=== PATIENT | female | born 1985 | race Caucasian/White ===

== ENCOUNTER → 2018-05-06 14:49 | Outpatient (CLI) | payer MEDICAID, SELFPAY ==
[2018-05-06 16:27] LABS: Follicle Stimulating Hormone 5.3 mIU/mL; Glucose 110 mg/dL (74-106); Luteinizing Hormone 12.4 mIU/mL; Pregnancy, Serum, hCG Quali. NEGATIVE Negative (0-9 Nonpreg); Prolactin 7.8 ng/mL; T4 Free Direct 0.79 ng/dL (0.76-1.46); Thyroid Stim Hormone (TSH) 1.48 uIU/mL (0.358-3.74)
[2018-05-06 16:34] LABS: Hemoglobin A1c 5.6 % (4.2-6.3)
--- OUTSIDE RECORDS SUMMARY | 2018-07-11 10:21 | XMS RPT_ITS ---
:1985 Author Organization OHIP Care Team Providers Name Role Phone Nolan Gutierrez Attending Unavailable NO DOCTOR YET Consulting Unavailable VELASQUEZ MATHEWS Attending Unavailable VELASQUEZ MATHEWS Consulting Unavailable DUDLEY SOTO Attending Unavailable DUDLEY SOTO Consulting Unavailable ANTONY AMARO D.O. Consulting Unavailable PROBLEMS PROBLEMS DATE TYPE CONDITION / CODE ATTENDING STATUS SOURCE 05/06/2018 Unknown N92.5 - Other Nolan Gutierrez Active [facility] menstruation / Repository N92.5(ICD-10) 10/18/2017 Admitting Unknown / NA Active [facility] diagnosis UNK(Unknown) Hospital Repository PROCEDURES PROCEDURES No Procedure Records FoundRESULTS RESULTS GLUCOSE Collected: 05/06/2018 Status: F Source: [place] 3:03 PM [facility] REPOSITORY TYPE CODE TESTS RESULT OUT OF RANGE REFERENCE UNITS LAB L501.0100 74-106 mg/dL High GLU 110 Result Comment: Fasting Glucose result from 100 to 125 mg/dL suggests IMPAIRED HOMEOSTASIS per A.D.A. criteria. Please note revised GLUCOSE reference range effective 2017. Performed By: #### L501.0100, L501.25472, L501.9520, L506.0400, L3100.5125, L3100.5170, L3100.5420 #### [facility] [address] [place], [address] FREE T3 Collected: 05/06/2018 Status: F Source: [place] 3:03 PM [facility] REPOSITORY TYPE CODE TESTS RESULT OUT OF RANGE REFERENCE UNITS LAB L501.29404 2.18-3.98 pg/mL Normal FREE T3 3.0 Performed By: #### L501.0100, L501.49898, L501.9520, L506.0400, L3100.5125, L3100.5170, L3100.5420 #### [facility] [address] [place], [address] THYROID STIM HORMONE Collected: 05/06/2018 Status: F Source: [place] C (TSH) 3:03 PM [facility] REPOSITORY TYPE CODE TESTS RESULT OUT OF RANGE REFERENCE UNITS LAB L501.9520 0.358-3.74 uIU/mL Normal TSH 1.48 Performed By: #### L501.0100, L501.68045, L501.9520, L506.0400, L3100.5125, L3100.5170, L3100.5420 #### [facility] [address] [facility] [place], [place], [address] T4 FREE DIRECT Collected: 05/06/2018 Status: F Source: [place] 3:03 PM [facility] REPOSITORY TYPE CODE TESTS RESULT OUT OF RANGE REFERENCE UNITS LAB L506.0400 0.76-1.46 ng/dL Normal T4 FREE 0.79 DIRECT Performed By: #### L501.0100, L501.93748, L501.9520, L506.0400, L3100.5125, L3100.5170, L3100.5420 #### [facility] [address] [facility] [place], [place], [address] FOLLICLE STIMULATING Collected: 05/06/2018 Status: F Source: [place] HORM[place] 3:03 PM [facility] REPOSITORY TYPE CODE TESTS RESULT OUT OF RANGE REFERENCE UNITS LAB L3100.5125 mIU/mL Normal FSH 5.3 Result Comment: NORMAL REFERENCE RANGES FEMALE FOLLICULAR 2.3 - 12.6 mIU/mL MID-CYCLE PEAK 5.2 - 17.5 mIU/mL LUTEAL 1.7 - 12.9 mIU/mL POST-MENOPAUSAL ON MHT 5.9 - 72.8 mIU/mL NOT ON MHT 12.7 - 132.2 mlU/mL MALE 0.7 - 10.8 mIU/mL NEW TEST METHOD AND REFERENCE RANGES SEPTEMBER 08, 2011 Performed By: #### L501.0100, L501.97490, L501.9520, L506.0400, L3100.5125, L3100.5170, L3100.5420 #### [facility] [address] [place], [place], [address] LUTEINIZING HORMONE Collected: 05/06/2018 Status: F Source: [place] 3:03 PM [facility] REPOSITORY TYPE CODE TESTS RESULT OUT OF RANGE REFERENCE UNITS LAB L3100.5170 mIU/mL Normal LH 12.4 Result Comment: NORMAL REFERENCE RANGES FEMALE FOLLICULAR 1.9 - 26.2 mIU/mL MID-CYCLE PEAK 22.8 - 76.1 mIU/mL LUTEAL 0.6 - 16.6 mIU/mL POST-MENOPAUSAL ON MHT 1.1 - 52.4 mIU/mL NOT ON MHT 8.6 - 61.8 mIU/mL MALE 1.2 - 10.6 mIU/mL NEW TEST METHOD AND REFERENCE RANGES SEPTEMBER 08, 2011 Performed By: #### L501.0100, L501.32190, L501.9520, L506.0400, L3100.5125, L3100.5170, L3100.5420 #### [facility] [address] [place], [place], [address] PROLACTIN Collected: 05/06/2018 Status: F Source: [place] 3:03 [facility] REPOSITORY TYPE CODE TESTS RESULT OUT OF RANGE REFERENCE UNITS LAB L3100.5420 ng/mL Normal PROLACTIN 7.8 Result Comment: NORMAL REFERENCE RANGES FEMALE NON- 2.2 - 30.3 ng/mL 8.1 - 347.6 ng/mL POST-MENOPAUSAL 0.7 - 31.5 ng/mL MALE 2.5 - 17.4 ng/mL NEW TEST METHOD AND REFERENCE RANGES SEPTEMBER 08, 2011 Performed By: #### L501.0100, L501.97377, L501.9520, L506.0400, L3100.5125, L3100.5170, L3100.5420 #### [facility] [address] [place], [place], [address] ,SERUM,HCG QUALI. Collected: Status: F Source: [place] 05/06/2018 3:03 PM [facility] REPOSITORY TYPE CODE TESTS RESULT OUT OF REFERENCE UNITS RANGE LAB L700.7000 0-9 Nonpreg Negative Normal HCGSQUAL NEGATIVE LAB L700.6700 =>Qualitative mIU/mL Normal HCG Qual < 1 triggr Performed By: #### L700.6800 #### [facility] [address] [place], [address] HEMOGLOBIN A1C Collected: 05/06/2018 Status: F Source: [place] C 3:03 PM [facility] REPOSITORY TYPE CODE TESTS RESULT OUT OF RANGE REFERENCE UNITS LAB L501.9985 4.2-6.3 % Normal HGB A1C 5.6 Performed By: #### L501.9985 #### [facility] [address] [place], [address] ED PROV NOTE Observed: 01/31/2018 Status: COMPLETED Source: [place] 8:57 PM [facility] [place] REPOSITORY HNO ID: [id number] Author: Antony Iglesias Current Service: (none) Author Type: Physician Type: ED Provider Notes Filed: 02/18/2018 9:44 PM Note Text: [place] [address] HEALTH INFORMATION MANAGEMENT EMERGENCY DEPARTMENT REPORT Patient: CONCHIS BURNHAM CURRENT,ANTONY Michael D.O. [id number] [age] F Status: [facility] ER ED Date of Service: 01/31/18 CHIEF COMPLAINT Low back pain. HISTORY OF PRESENT ILLNESS This is a 32-year-old female. She was moving a refrigerator yesterday and pulled her back, has pain across the low back. No radiation down the legs. No loss of bowel or bladder control. No weakness or numbness in the legs. PAST MEDICAL HISTORY Her past medical history is denied. PAST SURGICAL HISTORY She had a tubal. SOCIAL HISTORY She is a smoker. She denies drugs or alcohol. REVIEW OF SYSTEMS No headaches, blurred vision, sore throat, or neck pain. She denies any radicular pain down the lower extremities. No weakness or numbness in the lower extremities. PHYSICAL EXAMINATION She is awake, alert and oriented x3, in no acute distress, appears to be well hydrated and well nourished. HEENT is benign. Trachea midline. Heart is regular rate and rhythm. Lungs are clear. Abdomen was soft, nontender, normoactive bowel sounds. Extremities are without edema or cyanosis. Skin is without rashes. The patient had good peripheral pulses in the lower extremities. Negative Homans bilaterally. DTRs +2/4 in the patellae and Achilles with good extensor hallucis longus strength. Straight leg raising is negative bilaterally. She is able to stand on her heel and toes. She has some paravertebral tenderness in the lower lumbar region. No step-offs or deformity along the midline. IMPRESSION Lumbosacral strain. PLAN At this time I am going to discharge her home. I gave her a shot of Toradol and Norflex here. I am going to send her home on naproxen and Flexeril. Follow up as an outpatient with Primary Care. No heavy lifting and return to the ED if she has worsening of her symptoms. <Electronically signed by ANTONY AMARO D.O.> 02/02/18 2352 ANTONY AMARO D.O. cc: ANTONY AMARO D.O. << Signature on File>> Reported By: ANTONY AMARO D.O. Signed By: ANTONY AMARO D.O. Tests performed at: [address] [address] EMERGENCY DEPARTMENT Observed: 01/31/2018 Status: F Source: [place] REPORT 8:57 PM [facility] [address] HEALTH INFORMATION MANAGEMENT EMERGENCY DEPARTMENT REPORT Patient: CONCHIS BURNHAM ANTONY AMARO D.O. [id number] [age] F Status: [facility] ER ED Date of Service: 01/31/18 CHIEF COMPLAINT Low back pain. HISTORY OF PRESENT ILLNESS This is a 32-year-old female. She was moving a refrigerator yesterday and pulled her back, has pain across the low back. No radiation down the legs. No loss of bowel or bladder control. No weakness or numbness in the legs. PAST MEDICAL HISTORY Her past medical history is denied. PAST SURGICAL HISTORY She had a tubal. SOCIAL HISTORY She is a smoker. She denies drugs or alcohol. REVIEW OF SYSTEMS No headaches, blurred vision, sore throat, or neck pain. She denies any radicular pain down the lower extremities. No weakness or numbness in the lower extremities. PHYSICAL EXAMINATION She is awake, alert and oriented x3, in no acute distress, appears to be well hydrated and well nourished. HEENT is benign. Trachea midline. Heart is regular rate and rhythm. Lungs are clear. Abdomen was soft, nontender, normoactive bowel sounds. Extremities are without edema or cyanosis. Skin is without rashes. The patient had good peripheral pulses in the lower extremities. Negative Homans bilaterally. DTRs +2/4 in the patellae and Achilles with good extensor hallucis longus strength. Straight leg raising is negative bilaterally. She is able to stand on her heel and toes. She has some paravertebral tenderness in the lower lumbar region. No step-offs or deformity along the midline. IMPRESSION Lumbosacral strain. PLAN At this time I am going to discharge her home. I gave her a shot of Toradol and Norflex here. I am going to send her home on naproxen and Flexeril. Follow up as an outpatient with Primary Care. No heavy lifting and return to the ED if she has worsening of her symptoms. <Electronically signed by ANTONY AMARO D.O.> 02/02/18 2352 ANTONY AMARO D.O. cc: ANTONY AMARO D.O. << Signature on File>> Reported By: ANTONY AMARO D.O. Signed By: ANTONY AMARO D.O. Tests performed at: [address] [address] PROGRESS Observed: 01/11/2018 Status: COMPLETED Source: [place] 10:35 AM [facility] [place] REPOSITORY HNO ID: [id number] Author: Provider [facility] Service: (none) Author Type: Physician Type: Progress Notes Filed: 02/18/2018 9:07 PM Note Text: [facility] [place] [address] FIRST CARE REPORT Patient: FRAME,CONCHIS S CHARLES,-YONAS JohnsonNErma [id number] [age] F Status: REG POV FC Date of Service: 01/11/18 Report Date AND Time: 01/11/18 1035 HPI History Of Present Illness Chief Complaint Cough (FC) CC History Pt presents with dry, semi-productive cough x 3 weeks that is not improving. She is a pack a day smoker. She denies any fevers or sob. Reports mild nasal congestion and post nasal drip. Her cough is worse at night. She is taking tylenol cold and flu without any relief. No ear pain, mild sore throat. Vital Signs Vital Signs First Last Result Date Time Result Date Time Pulse Ox 99 01/11 1000 99 01/11 1000 B/P 108/74 01/11 1000 108/74 01/11 1000 Temp 98.4 01/11 1000 98.4 01/11 1000 Pulse 76 01/11 1000 76 01/11 1000 Resp 16 01/11 1000 16 01/11 1000 Medications Discontinued Scripts Ondansetron* ODT (Zofran* Odt) 4 MG PO Q6HPRN PRN NAUSEA Ondansetron* ODT (Zofran* Odt) 4 MG PO Q6HPRN PRN NAUSEA #10 TAB Prov: 10/19/17 DC: 01/11/18 1004 Not on Medication Reported Medications . (No Home Medications) Allergies Coded Allergies: Penicillins (Mild, RASH (ALLERGY) 01/11/18) Patient Health History Medical Problems Bacterial sinusitis Headache Nausea AND vomiting No pertinent past medical history Varicose vein Viral syndrome Surgical Problems H/O tubal ligation Family History Problems Family history of heart failure No pertinent family history Social History Problems Current non-drinker of alcohol Smoker OARRS Accessed and Reviewed NO LNMP: 12/19/17 Advanced Directives Advanced Directives N/A Adv Dir Info Given No Alcohol Screening Alcohol Use: N/A Review of Systems General Denies: Body Aches, Fever, Chills, Fatigue, Pain, Weakness. Skin No: Rash, Itching, Redness. Head Denies: Headaches, Sinus Headache, Lightheadedness, Dizziness. Eyes Denies: Eye Irritation, Itching, Matted, Redness. Ear Denies: Ear Pain, Ear Drainage, Hearing Loss, Fullness. Nose Nasal Congestion (clear). Mouth No: Sore Lesions in the Mouth. Throat Scratchy. Denies: Sore Throat, Difficulty swallowing, Hoarseness. Neck Soreness/Glands swollen. Denies: Neck Pain, Limitation Of Movement, Stiffness. Heart/Cardiovascular Denies: Chest Pain, Chest Pressure, Dyspnea On Exertion, Palpitations. Respiratory Cough. Denies: Cough, Productive, Croup, Dyspnea w/excertion, Dyspnea, Wheezing. Gastrointestinal Denies: Abdominal Pain, Nausea, Vomiting, Diarrhea. Physical Examination General Alert, Oriented X3, Cooperative Skin [place], Warm, and Dry, Well Hydrated Head Normocephalic, Atraumatic Eyes PERRL, Intact Extraocular Muscle, Eyelids Appear Normal Ears Normal Tympanic Membranes Nose Nasal Discharge (clear), Max perc sinus tender Mouth Mouth pink/wet Throat Uvula Midline Non-Edema, Post Nasal Drip Noted Neck Neck Supple, No Cervical Adenopathy Heart/Cardiovascular Regular Rate and Rhythm, Normal S-1, S-2 Respiratory Lungs Are Clear, No Wheezes, No Rhonchi Noted Impression And Plan Discharge Instructions Take Meds As Directed, Please stop smoking, Warm Liquids (tea/soup), Honey cough relief, Cough/Drainage - 3-8wks, Finish entire antibiotic Special Instructions o Follow up with your Primary Care Physician in 3-5 days if no improvement in your condition. o Call or return to [facility] if you experience problems relating to your visit or call [phone]. All medications and their side effects were explained to the patient and were understood. At home instructions were explained to the patient and were understood. Report to the [facility] Emergency Department if any further problems occur. Diagnosis 1. Bacterial sinusitis 2. Smoker *Prescriptions Prescriptions (FC) Medication Dose/Rte/Freq Days Qty Entered Max Daily Dose Azithromycin* (Zithromax*) 500 MG PO 6 01/11/18 Strength: 250 MG TAB DIRECTED 1032 Prednisone* 20 MG PO BID 10 01/11/18 Strength: 20 MG TAB 1032 <Electronically signed by FC-YONAS SOTO, C.N.P.> 01/11/18 1048 DUDLEY SOTONEllePElle << Signature on File>> Reported By: DUDLEY SOTONErma Signed By: DUDLEY SOTONErma Tests performed at: [place] [address] PROGRESS Observed: 10/19/2017 Status: COMPLETED Source: [place] 2:39 PM [facility] [place] REPOSITORY HNO ID: [id number] Author: Luann Olivarez (Military Professional) Jaun Samano MD Service: (none) Author Type: Nurse Practitioner Type: Progress Notes Filed: 02/18/2018 6:45 PM Note Text: [facility] CARE DEPARTMENT [address] [place] [address] To Whom This May Concern: CONCHIS BURNHAM has been seen at [facility] on 10/19/17. Please excuse her SCHOOL / WORK obligations due to her ailment for the period indicated below. EXCUSE SLIP Period Covered Today 10/19/17 Return On 10/21/17 <Electronically signed by Elizabeth NICOLASNEllePElle> 10/19/17 1440 VELASQUEZ MATHEWSNEllePElle << Signature on File>> Reported By: VELASQUEZ MATHEWSNErma Signed By: VELASQUEZ MATHEWSNErma Tests performed at: [address] [address] PROGRESS Observed: 10/19/2017 Status: COMPLETED Source: [place] 2:25 PM [facility] REPOSITORY HNO ID: [id number] Author: Luann Olivarez (Cornel) Jaun Samano MD Service: (none) Author Type: Nurse Practitioner Type: Progress Notes Filed: 02/18/2018 6:45 PM Note Text: [facility] [place] [address] [facility] CARE REPORT Patient: CONCHIS BURNHAM,-LUANN Olivarez C.N.P. [id number] [age] F Status: REG POV Date of Service: 10/19/17 Report Date AND Time: 10/19/17 1425 HPI History Of Present Illness Chief Complaint Vomiting (FC) CC History Pt presents today for complaints of nausea and vomiting that started last pm. Pt states she vomited at least 6 times last pm. Pt denies any fever, states she is also having cough and nasal congestion. Pt states she did go to the ER last pm but wait was to long. Pt states she has not vomited in hours, she is taking in sips. Pt states she has headache, feeling fatigued. Denies any diarrhea. Pt states she is urinating. Vital Signs Vital Signs First Last Result Date Time Result Date Time Pulse Ox 98 10/19 1413 98 10/19 1413 B/P 117/81 10/19 1413 117/81 10/19 1413 Temp 98.5 10/19 1413 98.5 10/19 1413 Pulse 77 10/19 1413 77 10/19 1413 Resp 16 10/19 1413 16 10/19 1413 Medications Discontinued Scripts Naproxen* (Naprosyn*) 500 MG PO BIDPRN PRN PAIN Naproxen* (Naprosyn*) 500 MG PO BIDPRN PRN PAIN #20 TAB Prov: 09/15/16 DC: 10/19/17 1411 Completed Prescribed Dose Reported Medications . (No Home Medications) Allergies Coded Allergies: Penicillins (Mild, RASH (ALLERGY) 10/19/17) Patient Health History Medical Problems Headache Nausea AND vomiting No pertinent past medical history Varicose vein Viral syndrome Surgical Problems H/O tubal ligation Family History Problems Family history of heart failure No pertinent family history Social History Problems Current non-drinker of alcohol Smoker OARRS Accessed and Reviewed NO LNMP: current Review of Systems General Fatigue, Change in Appetite. Denies: Fever. Skin No: Rash. Head Headaches, Lightheadedness. Ear Denies: Ear Pain. Nose Denies: Nasal Congestion. Mouth No: Sore Lesions in the Mouth. Throat Denies: Sore Throat, Difficulty swallowing. Neck Denies: Neck Pain, Limitation Of Movement, Stiffness, Soreness/Glands swollen. Respiratory Cough. Denies: Dyspnea, Wheezing. Gastrointestinal Nausea, Vomiting, Decreased Appetite. Denies: Diarrhea, Constipation, Heartburn. Genitourinary Other (dark in color ). Denies: Urinary Frequency, Burning, Pressure. Physical Examination General Alert, Oriented X3, Non-toxic Apperance, Cooperative, Appears Stated Age, No Acute Distress Skin [place], Warm, and Dry, Well Hydrated Head Normocephalic, Atraumatic Ears Normal Tympanic Membranes Nose No Nasal Discharge, Mucosa [place] Mouth Mouth pink/wet Throat Uvula Midline Non-Edema, Unremarkable Neck Neck Supple, No Mennigitis Symptoms, No Cervical Adenopathy Heart/Cardiovascular Regular Rate and Rhythm, Normal S-1, S-2 Respiratory Lungs Are Clear, Pt Speaking Full Sentence, No Wheezes, No Accessory Muscle Use, No Rhonchi Noted Psych/Mental Status Normal Affect, Normal Mood, Pleasant Abdomen Bowel Sounds Present, Abdomen Soft AND Non-Tender, No Palpable Masses, No Rebound Tenderness, No CVA Tenderness Impression And Plan Discharge Instructions Take Meds As Directed, Increase Liquids, Increase fluids slowly. 4 mg of Zofran given at 2 :40 pm today. I recommend a bland diet until symptoms resolve. Off work today and tomorrow. If you are unable to keep fluids in, and/or are having a decreased urine output, please follow- up in the ER for further evaluation. , Off work today and tomorrow. Special Instructions o Follow up with your Primary Care Physician in 2-3 days if no improvement in your condition. o Call or return to [facility] if you experience problems relating to your visit. All medications and their side effects were explained to the patient and were understood. At home instructions were explained to the patient and were understood. Report to the [facility] Emergency Department if any further problems occur Or Call [phone]. Diagnosis 1. Headache 2. Nausea AND vomiting *Prescriptions Prescriptions (FC) Medication Dose/Rte/Freq Days Qty Entered Max Daily Dose Ondansetron* ODT (Zofran* Odt) 4 MG PO 10 10/19/17 Strength: 4 MG ODT Q6HPRN PRN NAUSEA 1438 <Electronically signed by LOUISA-LUANN MATHEWS C.N.P.> 10/22/17 195 VELASQUEZ MATHEWSNErma << Signature on File>> Reported By: VELASQUEZ MATHEWSNEllePElle Signed By: VELASQUEZ MATHEWSNErma Tests performed at: [address] [id number] ALLERGIES ALLERGIES No Allergies Records FoundENCOUNTERS ENCOUNTERS ADMIT/DISCHARGE ACCOUNT ADMITTING ENCOUNTER LOCATION SOURCE NUMBER CLASS 05/06/2018 [id number] Ambulatory Sharon Juan [address] [facility] ing:[place] Repository 01/31/2018/ [id number] Emergency UNIBuilding:E [place] [address] [facility] Repository 01/11/2018 [id number] Ambulatory UNIBuilding:F [address] Repository 10/19/2017 [id number] Ambulatory UNIBuilding:F [address] Repository 10/18/2017/ [id number] Emergency UNIBuilding:E [place] [address] 7 [facility] Repository PAYERS PAYERS ENCOUNTER GUARANTOR PAYER SUBSCRIBER SOURCE 05/06/2018 CONCHIS [id number] Primary CONCHIS FRAMEDOB: Juan C GANDARA AVRaul NWNEW [id number] [address]Lmj: 330) PLANPolicy Number: Repository [id number] () [id number] Date:[id number] [address] [place] [id number]: 05/06/2018 Secondary NOT GIVENUNK Juan C Insurance:SELF PAY [facility] Number: Effective Repository Date:2018-05-06 01/31/2018 CONCHIS S Primary CONCHIS S [place] [address] Insurance:[facility] [address] [place], [place] PLANPolicy Number: [id number]: 330 [id number] [phone] () Date: [address] [place], [place] [address]ARLEEN [address]ES: 01/11/2018 CONCHIS S Primary CONCHIS S [facility] [id number] Insurance:[address] PLANPolicy Number: [id number]: (330) [id number] [phone] (HP) Date:[address]FARARLEEN LACKEY [address]PT: 10/19/2017 CONCHIS S Primary CONCHIS S [facility] [id number] Insurance:[facility] [address], [place] PLANPolicy Number: [id number]: 330 [id number] [phone] (HP) Date:[address] CENTER[facility]EN LACKEY [id number]: 10/18/2017 CONCHIS S Primary CONCHIS S [facility] [id number] Insurance:[address] PLANPolicy Number: [id number]: (330 [id number] [phone] (HP) Date:[address]ITAL[facility] UGARTE [address]BK:
== END ==
PROVIDERS: Visit Provider Obstetrics & Gynecology
DX: N92.5 Other specified irregular menstruation (principal)
CPT/HCPCS: 36415; 82947; 83001; 83002; 83036; 84146; 84439; 84443; 84481; 84703

== ENCOUNTER → 2018-11-17 13:01 | Outpatient (CLI) | payer MEDICAID, SELFPAY ==
[2018-11-22 10:18] LABS: HPV Reflexed? NOT INDICATED
== END ==
PROVIDERS: Referring Provider Obstetrics & Gynecology; Visit Provider Obstetrics & Gynecology
DX: Z12.4 Encounter for screening for malignant neoplasm of cervix (principal)
CPT/HCPCS: 87624; 88175; G0145